=== PATIENT | male | born 1980 | race American Indian/Alaskan Native ===

== ENCOUNTER 2018-03-05 10:42 | Day surgery (SDC) | payer OTHER ==
[2018-03-05] MEDS ORDERED: NACL 0.9% 1000 ML 1,000 ML IV SCH (12:00)
--- NOTE | 2018-03-05 12:21 | Anesthesia Consultation ---
Anesthesia Consult and Med Hx Date of service: 03/05/18 - Airway Anesthetic Teeth Evaluation: Good, Chipped ROM Head & Neck: Adequate Mental/Hyoid Distance: Adequate Mallampati Class: Class II Intubation Access Assessment: Probably Good - Pre-Operative Health Status ASA Pre-Surgery Classification: ASA2 - Pulmonary Hx Smoking: No Hx Asthma: No COPD: No - Cardiovascular System Hx Hypertension: No
--- NOTE | 2018-03-05 12:21 | Anesthesia Day of Surgery ---
Anesthesia Day of Surgery - Day of Surgery Patient Examined: Yes Patient H&P Reviewed: Yes Patient is NPO: Yes
[2018-03-05] MEDS ORDERED: DIPRIVAN 10 MG/ML IV ONE ×2 (12:25→12:26)
--- NOTE | 2018-03-05 12:51 | Procedure Note ---
Date of procedure: 03/05/18 Pre-op diagnosis: Epigastric Pain Post-op diagnosis: other (Moderate, Erosive Esophagitis/ Gastritis/ Duodenitis/ R/O Celiac Disease) Procedure: EGD with Biopsy Anesthesia: MAC Surgeon: NIKIA FIGUEROA Estimated blood loss: minimal Pathology: list Specimen disposition: to lab Condition: stable Disposition: same day (Treat PPI and Baclofen. Avoid aspirin and NSAID for 5 days and follow up in 1 to 2 weeks ([phone]).)
--- NOTE | 2018-03-05 12:59 | Post Anesthesia Evaluation ---
- Post Anesthesia Evaluation Patient Participated: Yes Airway Patent: Yes Stable Respiratory Function: Yes Nausea/Vomiting: No Temp > 96.8F: Yes Pain Manageable: Yes Adequeate Hydration: Yes Anesthesia Complications: No Block Receding Appropriately: Not Applicable Patient on Ventilator: No
[2018-03-05 13:10] VITALS: BP 105/74
--- NOTE | 2018-03-05 13:25 | Operative Report ---
INDICATIONS: This is a 37-year-old otherwise healthy -[place] gentleman, who has lately been having some epigastric pain and discomfort. EGD was done to assess for any associated upper GI pathology. His epigastric pain has been persisting in spite of being on PPI. DESCRIPTION OF PROCEDURE: Procedure was done after getting informed consent with MAC anesthesia. Instrument was passed through the hypopharynx into the esophagus, which showed moderate distal erosive esophagitis. Stomach showed gastritis. Biopsy was done from the gastric antrum, gastric body and angular incisure to rule out for H. pylori and atrophic gastritis. Additional biopsy was done from the distal esophagus to assess for the severe to the erosive esophagitis. The pylorus was patent. The duodenum and the bulb showed duodenitis. Biopsy was done from the second part of the duodenum to rule out for possible celiac disease. There was minimal bleeding from the biopsy sites. No complications associated with the procedure. ASSESSMENT: Epigastric pain, moderate erosive esophagitis, gastritis, duodenitis, rule out celiac disease, patent pylorus. PLAN: To treat the patient with PPI and baclofen. Have the patient avoid aspirin and aspirin-related products for the next few days. Encouraged the patient to take probiotics and follow up in the office in 1-2 weeks' time. Again, there were no complications associated with the procedure and minimal bleeding associated with the biopsy. The patient will be asked to follow up in the office in 1-2 weeks' time. RNAnastasiia was in the room throughout the entirety of the procedure. JOB# [id number] CLAUDETTE/OSCAR
== END 2018-03-05 10:43 | disposition home or self-care (01) ==
LOC: GIO 10:42
DX: K29.50 Unspecified chronic gastritis without bleeding (principal); K21.0 Gastro-esophageal reflux disease with esophagitis; Z79.899 Other long term (current) drug therapy; Z98.890 Other specified postprocedural states
CPT/HCPCS: 43239; 88305; 88342; J2704; J7030